=== PATIENT | female | born 1950 | race Caucasian/White ===

== ENCOUNTER 2018-04-01 11:53 | Inpatient (IN) | payer MEDICARE, BC ==
[~2018-04-01] VITALS: Ht 167.6 cm; Wt 109.8 kg
[2018-04-01] VITALS (20 sets, daily range): BP systolic 73–143; BP diastolic 41–79
[2018-04-01 13:03] LABS: BASOPHILS % (AUTO) 0.3 % (0.0-2.0); EOSINOPHILS % (AUTO) 2.4 % (0.0-6.0); HEMATOCRIT 40 % (33-45); HEMOGLOBIN 13.3 g/dL (11.5-14.8); LYMPHOCYTES # (AUTO) 2.2 /CMM (0.8-4.8); LYMPHOCYTES % (AUTO) 21.8 % (20.0-44.0); MEAN CORPUSCULAR HGB CONC 33 g/dl (31.0-36.0); MEAN CORPUSCULAR VOLUME 90 fL (82-100); MONOCYTES # (AUTO) 0.8 /CMM (0.1-1.30); MONOCYTES % (AUTO) 7.7 % (2.0-12.0); NEUTROPHILS % (AUTO) 67.8 % (43.0-81.0); PLATELET COUNT (AUTO) 324 /CMM (150-450); RDW COEFFICIENT OF VARIATION 11.9 (11.5-15.0); RED BLOOD CELL COUNT(AUTO) 4.46 MIL/uL (4.0-5.2); WHITE BLOOD COUNT (AUTO) 10.2 K/uL (4.3-11.0)
[2018-04-01 13:14] LABS: CALCIUM, SERUM 9.5 mg/dL (8.5-10.1); CARBON DIOXIDE 26 mmol/L (21-32); CHLORIDE 103 mmol/L (98-107); CREATININE 1.1 mg/dL (0.6-1.3); GLUCOSE 105 mg/dL (74-106); SODIUM SERUM 140 mmol/L (136-145); UREA NITROGEN, BLOOD 16 mg/dL (7-18)
[2018-04-01 13:20] LABS: TROPONIN I < 0.017 ng/mL (0.00-0.056)
[2018-04-01] MEDS ORDERED: DILTIAZEM HCL 25 MG IV ONE (13:24)
[2018-04-01 13:25] LABS: ALANINE AMINOTRANSFERASE 55 U/L (12-78); ALBUMIN 3.7 g/dL (3.4-5.0); ALKALINE PHOSPHATASE 75 U/L (46-116); ASPARTATE AMINOTRANSFERASE 36 U/L (15-37); B-TYPE NATRIURETIC PEPTIDE 1122 PG/ML (0-125); BILIRUBIN,DIRECT 0.1 mg/dL (0.0-0.2); BILIRUBIN,TOTAL 0.5 mg/dL (0.2-1.0); TOTAL PROTEIN, SERUM 7.6 g/dL (6.4-8.2)
[2018-04-01] MEDS ORDERED: DILTIAZEM HCL IV 125 MG in IV D5W 100 ML IV ONE (13:30)
[2018-04-01] MEDS ORDERED: DILTIAZEM HCL 25 MG IV IVP ONE (13:30)
[2018-04-01] MEDS ORDERED: ASPI-992 PO (13:43)
[2018-04-01] MEDS ORDERED: POTA10TA15 PO (13:43)
[2018-04-01] MEDS ORDERED: DIGO250T PO (13:43)
[2018-04-01] MEDS ORDERED: FUROSEMIDE 40 MG/4 ML VIAL ONE (13:48)
[2018-04-01] MEDS ORDERED: FUROSEMIDE 20 MG/2 ML VIAL ONE (13:48)
[2018-04-01] MEDS ORDERED: FUROSEMIDE 40 MG/4 ML VIAL IV ONE (14:00)
[2018-04-01] MEDS ORDERED: Z GUARD REMEDY 2 OZ OINT TP PRN (15:00)
[2018-04-01] MEDS ORDERED: MAGNESIUM HYDROXIDE 30 ML UDC PO PRN (15:00)
[2018-04-01] MEDS ORDERED: ACETAMINOPHEN 325 MG TABLET PO PRN (15:00)
[2018-04-01] MEDS ORDERED: HYDROCODONE/APAP 5/325MG 1 EACH TABLET PO PRN (15:00)
[2018-04-01] MEDS ORDERED: ONDANSETRON HCL/PF 4 MG/2 ML VIAL IVP PRN (15:00)
[2018-04-01] MEDS ORDERED: MAG HYDROX/AL HYDROX/SIMETH 30 ML UDC PO PRN (15:00)
[2018-04-01] MEDS ORDERED: DIGOXIN 0.125 MG TABLET PO ONE ×2 (15:30→21:00)
[2018-04-01] MEDS ORDERED: DILTIAZEM HCL IV 125 MG in IV D5W 100 ML IV PRN ×2 (17:00→21:30)
[2018-04-01] MEDS ORDERED: DILTIAZEM HCL 50 MG IV IV ONE (17:30)
[2018-04-01] MEDS: FUROSEMIDE 40 MG/4 ML VIAL IV SCH (17:51)
[2018-04-01] MEDS: ZOLPIDEM TARTRATE 5 MG TABLET PO PRN (23:41)
[2018-04-02] VITALS (60 sets, daily range): BP systolic 90–160; BP diastolic 50–98
[2018-04-02 04:55] LABS: BASOPHILS % (AUTO) 0.4 % (0.0-2.0); EOSINOPHILS % (AUTO) 4.5 % (0.0-6.0); HEMATOCRIT 41 % (33-45); HEMOGLOBIN 13.3 g/dL (11.5-14.8); LYMPHOCYTES # (AUTO) 2.2 /CMM (0.8-4.8); LYMPHOCYTES % (AUTO) 25.4 % (20.0-44.0); MEAN CORPUSCULAR HGB CONC 33 g/dl (31.0-36.0); MEAN CORPUSCULAR VOLUME 92 fL (82-100); MONOCYTES # (AUTO) 0.7 /CMM (0.1-1.30); MONOCYTES % (AUTO) 7.7 % (2.0-12.0); NEUTROPHILS # (AUTO) 5.3 /CMM (1.8-8.9); PLATELET COUNT (AUTO) 301 /CMM (150-450); RDW COEFFICIENT OF VARIATION 12.6 (11.5-15.0); RED BLOOD CELL COUNT(AUTO) 4.41 MIL/uL (4.0-5.2); WHITE BLOOD COUNT (AUTO) 8.6 K/uL (4.3-11.0)
[2018-04-02 05:08] LABS: CALCIUM, SERUM 8.9 mg/dL (8.5-10.1); CREATININE 1.2 mg/dL (0.6-1.3); MAGNESIUM 1.9 mg/dL (1.8-2.4); PHOSPHORUS 4.5 mg/dL (2.5-4.9); POTASSIUM 3.6 mmol/L (3.5-5.1)
[2018-04-02] MEDS ORDERED: DILTIAZEM HCL 25 MG IV ONE ×2 (05:18→05:21)
[2018-04-02] MEDS ORDERED: DIGOXIN 0.125 MG TABLET PO ONE (06:00)
[2018-04-02] MEDS: FUROSEMIDE 40 MG/4 ML VIAL IV SCH ×2 (09:11→17:51)
[2018-04-02] MEDS: ASPIRIN 325 MG TABLET PO SCH (09:11)
[2018-04-02] MEDS: POTASSIUM CHLORIDE 10 MEQ TABLET.SA PO SCH (09:11)
[2018-04-02] MEDS: METOPROLOL TARTRATE 25 MG TABLET PO SCH ×2 (17:51→23:12)
[2018-04-02] MEDS: ZOLPIDEM TARTRATE 5 MG TABLET PO PRN (23:10)
[2018-04-03] VITALS (7 sets, daily range): BP systolic 102–147; BP diastolic 45–84
[2018-04-03] MEDS: METOPROLOL TARTRATE 25 MG TABLET PO SCH ×4 (05:50→23:21)
[2018-04-03 06:00] LABS: BASOPHILS % (AUTO) 0.3 % (0.0-2.0); EOSINOPHILS % (AUTO) 4.1 % (0.0-6.0); HEMATOCRIT 40 % (33-45); HEMOGLOBIN 13.1 g/dL (11.5-14.8); LYMPHOCYTES # (AUTO) 2.3 /CMM (0.8-4.8); LYMPHOCYTES % (AUTO) 21.2 % (20.0-44.0); MEAN CORPUSCULAR HGB CONC 33 g/dl (31.0-36.0); MEAN CORPUSCULAR VOLUME 92 fL (82-100); MONOCYTES # (AUTO) 0.8 /CMM (0.1-1.30); MONOCYTES % (AUTO) 7.6 % (2.0-12.0); NEUTROPHILS # (AUTO) 7.3 /CMM (1.8-8.9); NEUTROPHILS % (AUTO) 66.8 % (43.0-81.0); PLATELET COUNT (AUTO) 283 /CMM (150-450); RDW COEFFICIENT OF VARIATION 12.5 (11.5-15.0); RED BLOOD CELL COUNT(AUTO) 4.36 MIL/uL (4.0-5.2); WHITE BLOOD COUNT (AUTO) 10.9 K/uL (4.3-11.0)
[2018-04-03 06:21] LABS: POTASSIUM 3.9 mmol/L (3.5-5.1)
[2018-04-03 06:22] LABS: CALCIUM, SERUM 9.3 mg/dL (8.5-10.1); CREATININE 1.1 mg/dL (0.6-1.3)
[2018-04-03] MEDS: POTASSIUM CHLORIDE 10 MEQ TABLET.SA PO SCH (08:24)
[2018-04-03] MEDS: ASPIRIN 325 MG TABLET PO SCH (08:24)
[2018-04-03] MEDS: FUROSEMIDE 40 MG/4 ML VIAL IV SCH ×2 (09:55→17:17)
[2018-04-03] MEDS: DIGOXIN 0.25 MG TABLET PO SCH (12:05)
[2018-04-04] VITALS: BP 156/71
[2018-04-04 04:00] VITALS: BP_SYST 130; BP_DIAS 61; BP_DIAS 67
[2018-04-04] MEDS: METOPROLOL TARTRATE 25 MG TABLET PO SCH ×4 (05:27→23:38)
[2018-04-04 07:31] LABS: BASOPHILS % (AUTO) 0.4 % (0.0-2.0); EOSINOPHILS % (AUTO) 4.2 % (0.0-6.0); HEMATOCRIT 40 % (33-45); HEMOGLOBIN 13.2 g/dL (11.5-14.8); LYMPHOCYTES # (AUTO) 1.6 /CMM (0.8-4.8); LYMPHOCYTES % (AUTO) 19.3 % (20.0-44.0); MEAN CORPUSCULAR HGB CONC 33 g/dl (31.0-36.0); MEAN CORPUSCULAR VOLUME 92 fL (82-100); MONOCYTES # (AUTO) 0.8 /CMM (0.1-1.30); MONOCYTES % (AUTO) 9.7 % (2.0-12.0); NEUTROPHILS # (AUTO) 5.6 /CMM (1.8-8.9); NEUTROPHILS % (AUTO) 66.4 % (43.0-81.0); PLATELET COUNT (AUTO) 297 /CMM (150-450); RDW COEFFICIENT OF VARIATION 12.4 (11.5-15.0); RED BLOOD CELL COUNT(AUTO) 4.34 MIL/uL (4.0-5.2); WHITE BLOOD COUNT (AUTO) 8.4 K/uL (4.3-11.0)
[2018-04-04 07:39] LABS: CALCIUM, SERUM 8.9 mg/dL (8.5-10.1); CREATININE 1.1 mg/dL (0.6-1.3); POTASSIUM 3.4 mmol/L (3.5-5.1)
[2018-04-04 08:00] VITALS: BP 143/81
[2018-04-04] MEDS: FUROSEMIDE 40 MG/4 ML VIAL IV SCH (08:18)
[2018-04-04] MEDS: POTASSIUM CHLORIDE 10 MEQ TABLET.SA PO SCH (08:21)
[2018-04-04] MEDS: ASPIRIN 325 MG TABLET PO SCH (08:22)
[2018-04-04 12:00] VITALS: BP 113/61
[2018-04-04] MEDS: DIGOXIN 0.25 MG TABLET PO SCH (12:18)
[2018-04-04 16:00] VITALS: BP 111/81
[2018-04-04] MEDS: FUROSEMIDE 40 MG TABLET PO SCH (17:22)
[2018-04-04 20:00] VITALS: BP 115/61
[2018-04-05] VITALS: BP 135/75
[2018-04-05 04:00] VITALS: BP 132/72
[2018-04-05] MEDS: METOPROLOL TARTRATE 25 MG TABLET PO SCH (05:27)
[2018-04-05 07:00] LABS: BASOPHILS % (AUTO) 0.5 % (0.0-2.0); EOSINOPHILS % (AUTO) 4.5 % (0.0-6.0); HEMATOCRIT 38 % (33-45); HEMOGLOBIN 12.8 g/dL (11.5-14.8); LYMPHOCYTES # (AUTO) 1.6 /CMM (0.8-4.8); LYMPHOCYTES % (AUTO) 20.1 % (20.0-44.0); MEAN CORPUSCULAR HGB CONC 34 g/dl (31.0-36.0); MEAN CORPUSCULAR VOLUME 92 fL (82-100); MONOCYTES # (AUTO) 0.8 /CMM (0.1-1.30); MONOCYTES % (AUTO) 9.5 % (2.0-12.0); NEUTROPHILS # (AUTO) 5.3 /CMM (1.8-8.9); NEUTROPHILS % (AUTO) 65.4 % (43.0-81.0); PLATELET COUNT (AUTO) 298 /CMM (150-450); RDW COEFFICIENT OF VARIATION 12.3 (11.5-15.0); RED BLOOD CELL COUNT(AUTO) 4.11 MIL/uL (4.0-5.2); WHITE BLOOD COUNT (AUTO) 8.1 K/uL (4.3-11.0)
[2018-04-05 07:20] LABS: CALCIUM, SERUM 8.9 mg/dL (8.5-10.1); CREATININE 1.1 mg/dL (0.6-1.3); POTASSIUM 3.4 mmol/L (3.5-5.1)
[2018-04-05 08:00] VITALS: BP 121/64
[2018-04-05] MEDS: ASPIRIN 325 MG TABLET PO SCH (08:12)
[2018-04-05] MEDS: POTASSIUM CHLORIDE 10 MEQ TABLET.SA PO SCH (08:12)
[2018-04-05] MEDS: FUROSEMIDE 40 MG TABLET PO SCH (08:12)
[2018-04-05] MEDS ORDERED: POTASSIUM CHLORIDE 10 MEQ TABLET.SA PO ONE (11:30)
== END 2018-04-05 11:27 | disposition home or self-care (01) | DRG 308 ==
LOC: ER 12:01 → EDBD 13:48 → TELE1 13:48 → TELE-TD 16:43 → ICU 19:52 → TELE1 04-02 18:21
PROVIDERS: ADMIT Family Medicine; ATTEND Family Medicine
DX: I48.91 Unspecified atrial fibrillation (principal); I50.33 Acute on chronic diastolic (congestive) heart failure; I11.0 Hypertensive heart disease with heart failure; E66.01 Morbid (severe) obesity due to excess calories; R60.9 Edema, unspecified; Z68.39 Body mass index [BMI] 39.0-39.9, adult
CPT/HCPCS: 36415; 71045-TC; 80048-TC; 80061-TC; 80076-TC; 80162-TC; 83735-TC; 83880; 84100-TC; 84443-TC; 84484-TC; 85025-TC; 85730-TC; 87081-TC; 93307-TC; 93970-TC; A4606; G0378; J1940; J3490; J7060; Z7610